=== PATIENT | female | born 1995 | race Two or more races ===

== ENCOUNTER 2023-02-08 20:59 | Emergency (ER) | payer OTHER ==
[~2023-02-08] VITALS: Ht 154.9 cm; Wt 48.1 kg
== END 2023-02-09 00:10 | disposition home or self-care (01) ==
LOC: ER 20:59
DX: R10.9 Unspecified abdominal pain (principal)

== ENCOUNTER 2023-02-16 22:50 | Emergency (ER) | payer OTHER ==
[~2023-02-16] VITALS: Ht 154.9 cm; Wt 47.6 kg
[2023-02-17] MEDS ORDERED: ZYNCOF 20-400120 ML PO (03:40)
[2023-02-17] MEDS ORDERED: PHENAGIL TABLE1 EACH PO (03:40)
== END 2023-02-17 03:58 ==
LOC: ER 22:50
DX: J10.1 Influenza due to other identified influenza virus with other respiratory manifestations (principal); Z20.822 Contact with and (suspected) exposure to COVID-19